=== PATIENT | male | born 1965 | race Caucasian/White ===

== ENCOUNTER 2021-05-20 08:48 | Emergency (ER) | payer OTHER ==
[~2021-05-20] VITALS: Ht 167.6 cm; Wt 118.1 kg
[~2021-05-20 08:48] MED LIST: GABAPENTIN600 MG PO; HYDROCODON-ACE1 EA11 PO; NORTRIPTYLINE H10 MG PO; OMEPRAZOLE20 MG PO; OXYBUTYNIN CHLOR5 MG PO; VENLAFAXINE HC150 MG PO
--- OUTSIDE RECORDS SUMMARY | 2021-05-20 08:50 | XMS ---
PreManage Notification: HARI HERBERT Security A[employer] Events No recent Security Events currently on file CRITERIA MET - [facility] CARE PROVIDERS There are no care providers on record at this time. Marino has no Care Guidelines for this patient. Junaid VISIT COUNT (12 MO.) 3 [facility] 1 MINI Garcia TOTAL 4 NOTE: Visits indicate total known visits. ED/C VISIT TRACKING (12 MO.) 05/20/2021 08:49 [facility] TYPE: Emergency COMPLAINT: - FALL, R UPPER LEG PAIN/INJURY [facility] [facility] DIAGNOSES: - lt side abd pain - Myalgia, other site - Flank Pain 12/01/2020 00:57 [facility] Elaine PEREZ TYPE: Emergency DIAGNOSES: - Hypoxemia - abd and neck pain - Acute and chronic respiratory failure with hypoxia - Abdominal Pain - Localized swelling, mass and lump, neck - Constipation - Left upper quadrant pain 10[facility]14/2020 [facility] [facility] [address] DIAGNOSES: - Morbid (severe) obesity with alveolar hypoventilation - Shortness of Breath - Deviated nasal septum - lightheaded, SOB, shaky - Sleep apnea, unspecified - Disorder of thyroid, unspecified INPATIENT VISIT TRACKING (12 MO.) [facility] [facility] [address] DIAGNOSES: - Acute and chronic respiratory failure with hypoxia - Localized swelling, mass and lump, neck - Hypoxemia - Left upper quadrant pain [email or web address]
== END 2021-05-20 12:12 | disposition short-term general hospital (02) ==
LOC: ED 08:48
DX: S72.101A Unspecified trochanteric fracture of right femur, initial encounter for closed fracture (principal); Z79.899 Other long term (current) drug therapy; W01.0XXA Fall on same level from slipping, tripping and stumbling without subsequent striking against object, initial encounter; Y93.01 Activity, walking, marching and hiking; Y99.0 Civilian activity done for income or pay
CPT/HCPCS: 36415; 72170; 73502; 73552; 80048; 85025; 96374; 96375; 96376; 99284-25; J1170; J2405; U0003

== ENCOUNTER 2023-03-24 13:18 | Emergency (ER) | payer OTHER ==
[~2023-03-24] VITALS: Ht 167.6 cm; Wt 108.9 kg
[2023-03-24] MEDS ORDERED: LEVOFLOXACIN500 MG PO ×2 (13:49→17:42)
[2023-03-24] MEDS ORDERED: DOXYCYCLINE HY100 MG PO ×2 (13:49→17:42)
[2023-03-24 14:06] LABS: BILIRUBIN, URINE NEGATIVE (negative); BLOOD/HGB, URINE LARGE (Negative); KETONE, URINE NEGATIVE (Negative); LEUK ESTERASE, URINE SMALL (negative); NITRITE, URINE NEGATIVE (negative); PH, URINE 6.5 (5-7)
[2023-03-24 14:17] LABS: BACTERIA, URINE RARE /hpf (negative); CASTS, URINE NONE SEEN \\lpf; COLLECTION TYPE, URINE CLEAN CATCH; CRYSTALS, URINE NONE SEEN (0-1+); EPITHELIAL CELLS, URINE NONE SEEN /lpf (0-1+); REFLEX CULTURE, URINE Yes (No)
[2023-03-24 14:52] LABS: BASOPHILS 0.6 % (0-2); EOSINOPHILS 3.1 % (0-6); HEMATOCRIT 35.2 % (35.0-50.0); HEMOGLOBIN 11.5 g/dL (12.0-18.0); LYMPHOCYTES 18.6 % (24-44); MCH 26.6 (27-36); MCHC 32.7 g/dl (30-36); MCV 81.5 fl (81-99); MONOCYTES 10.7 % (0-12); RBC 4.32 M/ul (4.3-5.7); RDW 14.6 (10.5-15.0)
[2023-03-24] MEDS ORDERED: FLUOXETINE HCL20 M1 PO (15:01)
[2023-03-24] MEDS ORDERED: NORTRIPTYLINE H25 MG PO (15:02)
[2023-03-24] MEDS ORDERED: NARCAN4 MG NS (15:02)
[2023-03-24] MEDS ORDERED: TAMSULOSIN HCL0.4 MG PO (15:02)
[2023-03-24] MEDS ORDERED: MIRALAX119 GM PO (15:03)
[2023-03-24] MEDS ORDERED: SILDENAFIL CIT100 MG PO (15:03)
[2023-03-24] MEDS ORDERED: VITAMIN D3125 MC1 PO (15:04)
[2023-03-24 15:06] LABS: ALBUMIN 2.8 g/dL (3.4-5.0); ALBUMIN/GLOBULIN RATIO 0.82 (1.1-2.4); ANION GAP 12.6 (7-21); BILIRUBIN, TOTAL 0.9 ng/dL (0.2-1.0); BUN/CREATININE RATIO 11.94 (6.0-28.6); CALCIUM 8.2 mg/dL (8.5-10.1); CREATININE, SERUM 0.67 mg/dL (0.70-1.30); POTASSIUM 3.6 mmol/L (3.5-5.1); PROTEIN, TOTAL 6.2 g/dL (6.4-8.2)
[2023-03-24 17:50] VITALS: BP 139/84
== END 2023-03-24 17:50 | disposition home or self-care (01) ==
LOC: ED 13:18
PROVIDERS: Emergency Medicine
DX: N45.1 Epididymitis (principal); N43.3 Hydrocele, unspecified; Z91.048 Other nonmedicinal substance allergy status; Z79.899 Other long term (current) drug therapy
CPT/HCPCS: 36415; 51702; 76870; 80053; 81001; 85025; 87088; 99284-25; J1170; J7040

== ENCOUNTER 2023-03-31 18:50 | Emergency (ER) | payer OTHER ==
[~2023-03-31] VITALS: Ht 167.6 cm; Wt 109.0 kg
[~2023-03-31 18:50] MED LIST changes: +DOXYCYCLINE HY100 MG PO; +FLUOXETINE HCL20 M1 PO; +LEVOFLOXACIN500 MG PO; +MIRALAX119 GM PO; +NARCAN4 MG NS; +NORTRIPTYLINE H25 MG PO; +SILDENAFIL CIT100 MG PO; +TAMSULOSIN HCL0.4 MG PO; +VITAMIN D3125 MC1 PO
--- OUTSIDE RECORDS SUMMARY | 2023-03-31 18:58 | XMS ---
PreManage Notification: HARI HERBERT Security [employer] Events No recent Security Events currently on file CRITERIA MET - 6 ED Visits in 6 Months - [facility] - 2 Visits in 30 Days CARE PROVIDERS LUCAS MATHIAS Emergency Medicine Current PHONE: [phone] Marino has no Care Guidelines for this patient. E.Faye. VISIT COUNT (12 MO.) [address] [place] [address] Cristina Burgos (Elaine Henry) 2 [facility] TOTAL 6 NOTE: Visits indicate total known visits. ED/UCC VISIT TRACKING (12 MO.) 03/31/2023 18:50 [facility] TYPE: Emergency COMPLAINT: - ABDOMINAL PAIN 03/24/2023 13:19 [facility] TYPE: Emergency COMPLAINT: - POSS UTI DIAGNOSES: - Epididymitis - Hydrocele, unspecified - Left lower quadrant pain - Other residential (current) drug therapy - Other nonmedicinal substance allergy status 02/14/2023 13:01 [facility] Cristina PEREZ (Elaine Henry) TYPE: Emergency DIAGNOSES: - Abscess of epididymis or testis - Epididymitis - poss leg infection - Testicle Pain 02/10/2023 20:01 [facility] Elaine PEREZ (lEaine Henry) TYPE: Emergency DIAGNOSES: - Epididymo-orchitis - groin pain 02/08/2023 12:03 [facility] Elaine PEREZ (Elaine Henry) TYPE: Emergency DIAGNOSES: - Epididymitis - groin pain - Testicle Pain [facility] DIAGNOSES: - Epididymitis - Orchitis - Groin Pain - poss hernia in groin INPATIENT VISIT TRACKING (12 MO.) No inpatient visits to display in this time frame [email or web address]
[2023-03-31 20:03] LABS: BASOPHILS 0.4 % (0-2); EOSINOPHILS 3.6 % (0-6); HEMATOCRIT 34.5 % (35.0-50.0); HEMOGLOBIN 11.1 g/dL (12.0-18.0); LYMPHOCYTES 22.4 % (24-44); MCH 26.4 (27-36); MCHC 32.3 g/dl (30-36); MCV 81.8 fl (81-99); MONOCYTES 11.7 % (0-12); NEUTROPHILS 61.9 % (39-80); PLATELET COUNT 152 K/uL (140-440); RBC 4.21 M/ul (4.3-5.7); RDW 15.3 (10.5-15.0)
[2023-03-31 20:04] LABS: BILIRUBIN, URINE POSITIVE (negative); BLOOD/HGB, URINE LARGE (Negative); KETONE, URINE TRACE (Negative); LEUK ESTERASE, URINE MODERATE (negative); NITRITE, URINE NEGATIVE (negative); PH, URINE 5.5 (5-7)
[2023-03-31 20:08] LABS: EPITHELIAL CELLS, URINE 0 /lpf (0-1+); RED BLOOD CELLS, URINE 21-40 /hpf (0-5)
[2023-03-31 20:09] LABS: BACTERIA, URINE RARE /hpf (negative); REFLEX CULTURE, URINE Yes (No)
[2023-03-31 20:20] LABS: ALBUMIN 2.6 g/dL (3.4-5.0); ALBUMIN/GLOBULIN RATIO 0.76 (1.1-2.4); ANION GAP 9.8 (7-21); BILIRUBIN, TOTAL 0.7 ng/dL (0.2-1.0); BUN/CREATININE RATIO 10.66 (6.0-28.6); CALCIUM 8.3 mg/dL (8.5-10.1); CREATININE, SERUM 0.75 mg/dL (0.70-1.30); POTASSIUM 3.8 mmol/L (3.5-5.1)
[2023-03-31 22:07] VITALS: BP 127/79
[2023-04-01] MEDS ORDERED: DOXYCYCLINE HY100 MG PO (09:09)
[2023-04-01] MEDS ORDERED: IBU800 MG PO (09:09)
[2023-04-01] MEDS ORDERED: LEVOFLOXACIN500 MG PO (09:09)
== END 2023-03-31 22:08 | disposition home or self-care (01) ==
LOC: ED 18:50
PROVIDERS: Emergency Medicine
DX: N45.2 Orchitis (principal); K21.9 Gastro-esophageal reflux disease without esophagitis; Z91.09 Other allergy status, other than to drugs and biological substances; Z79.899 Other long term (current) drug therapy
CPT/HCPCS: 36415; 76870; 80053; 81001; 85025; 96365; 99284-25; J0696